=== PATIENT | female | born 1970 ===

== ENCOUNTER 2017-12-23 19:11 | Emergency (ER) | payer SELFPAY ==
[2017-12-23] MEDS ORDERED: Aspirin 81 mg CHEW TAB* 81 MG TAB.CHEW PO ONE (19:22)
--- NOTE | 2017-12-23 19:28 | UC ---
Cardiac HPI - HPI Summary HPI Summary: 47 YO FEMALE comes to clinic with a chief complaint of chest pain since 11 AM this morning. She has been nauseous and she's vomited. The pressure goes down her left arm. She reports she's been under a lot of emotional stress lately. Denies shortness of breath. She does have high blood pressure high cholesterol and diabetes. The chest discomfort was moderate to severe its worst at this time there is no chest pain. - History of Current Complaint Stated Complaint: CHEST PAINS Time Seen by Provider: 12/23/17 19:14 - Allergy/Home Medications Allergies/Adverse Reactions: Allergies Allergy/AdvReac Type Severity Reaction Status Date / Time No Known Allergies Allergy Verified 12/23/17 19:32 Home Medications: Home Medications Aspirin EC TAB* [Ecotrin EC Low Dose 81 MG*] 81 mg PO DAILY 12/23/17 [History Confirmed 12/23/17] Atorvastatin* [Lipitor*] 40 mg PO DAILY 12/23/17 [History Confirmed 12/23/17] Esomeprazole(NF) [Nexium(NF)] 1 tab DAILY 12/23/17 [History Confirmed 12/23/17] Ferrous Sulfate TAB* 325 mg PO DAILY 12/23/17 [History Confirmed 12/23/17] Lisinopril/HCTZ 20/25(NF) [Zestoretic 20/(NF)] 1 tab PO DAILY 12/23/17 [ History Confirmed 12/23/17] metFORMIN* [Glucophage 500 MG TAB *] 500 mg PO BID 12/23/17 [History Confirmed 12/23/17] PMH/Surg Hx/FS Hx/Imm Hx Endocrine History: Diabetes Cardiovascular History: Hypertension - Family History Known Family History: Positive: Hypertension, Diabetes - Social History Lives: With Family Review of Systems Constitutional: Negative Skin: Negative Eyes: Negative ENT: Negative Respiratory: Negative Cardiovascular: Chest Pain Gastrointestinal: Vomiting Genitourinary: Negative Motor: Negative Neurovascular: Negative Musculoskeletal: Negative Neurological: Negative Psychological: Negative Is Patient Immunocompromised?: No All Other Systems Reviewed And Are Negative: Yes Physical Exam Triage Information Reviewed: Yes Appearance: Well-Appearing, No Pain Distress, Well-Nourished Vital Signs Reviewed: Yes Eye Exam: Normal ENT Exam: Normal Neck exam: Normal Respiratory Exam: Normal Respiratory: Positive: Lungs clear, Normal breath sounds, No respiratory distress Cardiovascular Exam: Normal Cardiovascular: Positive: RRR Abdomen Description: Positive: Nontender Bowel Sounds: Positive: Present Musculoskeletal Exam: Normal Musculoskeletal: Positive: Strength Intact, ROM Intact Neurological Exam: Normal Neurological: Positive: Fatigued Skin Exam: Normal Diagnostics - EKG EKG Comments: AT 19;15 NSR 99BPM, ST ELEVATION IN ANTERIOR/LATERAL LEADS WITH FLIPPED TS IN THE INFERIOR LEADS, POSITIVE PVC. NO OLD EKG TO COMPARE Cardiac Rate: NL Cardiac Rhythm: Sinus: Normal Ectopy: PVCs - Assessment/Plan Course Of Treatment: ASA 324MG PO GIVEN IN CLINIC, IV STARTED. AMBULANCE CALLED TO TRANSPORT TO A CARDIAC CENTER. THE PATIENT WISHED TO GO TO [facility]. I SPOKE WITH THE [facility] ABOUT THE PATIENT. STABLE AT TRANSFER. - Clinical Impression Provider Diagnoses: CHEST PAIN WITH EKG ST CHANGES Discharge - Sign-Out/Discharge Documenting (check all that apply): Patient Departure All imaging exams completed and their final reports reviewed: No Studies - Discharge Plan Condition: Stable Disposition: TRANS HIGHER LVL OF CARE FAC Referrals: Brianna BARNARD CHEMICAL ECONOMISTKaylee [Nurse Practitioner] - - Billing Disposition and Condition Condition: STABLE Disposition: Trans Higher Lvl of Care Fac - Attestation Statements Document Initiated by Veronika: No
[2017-12-23 19:46] VITALS: BP 130/79
== END 2017-12-23 19:40 | disposition short-term general hospital (02) ==
LOC: UCCORT 19:11
DX: R07.9 Chest pain, unspecified (principal); R94.31 Abnormal electrocardiogram [ECG] [EKG]; I10 Essential (primary) hypertension; Z79.82 Long term (current) use of aspirin; Z79.899 Other long term (current) drug therapy
CPT/HCPCS: 93005; 99213; A9270-GY; G0463